=== PATIENT | male | born 1970 | race Hispanic/Latino ===

== ENCOUNTER → 2019-06-10 | Day surgery (SDC) | payer MEDICARE ==
[~2019-06-10] MED LIST: ATORVASTATIN CA20 MG PO; FENTANYL CITRATE/PF 100MCG/2 ML INJ ONE; FLECAINIDE ACE100 MG PO; FLOMAX0.4 MG PO; HUMALOG100 UNIT/3 SC; JANUMET XR 1001 EACH PO; JARDIANCE PO; LANTUS 3ML100 UNITS/ SC; LINZESS PO; MIDAZOLAM HCL 2 MG/2 ML VIAL ONE; OZEMPIC SC; PANTOPRAZOLE SO40 MG PO; PROPOFOL IV EMULSION 10 MG/ML 50 ML VIAL ONE; XARELTO20 MG PO
--- OUTSIDE RECORDS SUMMARY | 2019-06-10 06:21 | XMS REPORT | Continuity of Care Document ---
Author Author [facility] Organization [facility] Address Unknown Phone Unavailable Care Team Providers Care Anesthesia Technician Name Role Phone Therasis Information ADAPTIX Unavailable Unavailable Problems No Data Provided for This Section Medications Medication Details Route Status Patient Instructions Ordering Provider Order Date Source TAMSULOSIN HCL CAPSULE Active 07/13/2018 [facility] ATORVASTATIN CALCIUM Active 07/13/2018 [facility] PANTOPRAZOLE SODIUM Active 07/13/2018 [facility] RIVAROXABAN TABS Active 07/13/2018 [facility] METOPROLOL TARTRATE Active 07/13/2018 [facility] AMIODARONE HCL TABLET Active 07/13/2018 [facility] JARDIANCE TABLET Active 07/13/2018 [facility] HUMALOG SOLUTION Active 07/13/2018 [facility] LANTUS SOLUTION Active 07/13/2018 [facility] Allergies, Adverse Reactions, Alerts Substance Category Reaction Severity Reaction type Status Date Reported Comments Source Allergies Unknown propensity to adverse reactions [facility] Immunizations No Data Provided for This Section Results No Data Provided for This Section Pathology Reports No Data Provided for This Section Diagnostic Reports No Data Provided for This Section Consultation Notes No Data Provided for This Section Discharge Summaries No Data Provided for This Section History and Physicals No Data Provided for This Section Vital Signs Vital Sign Value Date Comments Source Diastolic (mm Hg) 82 09/02/2018 [facility] Systolic (mm Hg) 172 09/02/2018 [facility] Heart Rate 84 09/02/2018 [facility] Diastolic (mm Hg) 100 07/13/2018 [facility] Systolic (mm Hg) 152 07/13/2018 [facility] Heart Rate 68 07/13/2018 [facility] Encounters No Data Provided for This Section Procedures No Data Provided for This Section Assessment and Plan No Data Provided for This Section Plan of Care No Data Provided for This Section Social History No Data Provided for This Section Family History No Data Provided for This Section Advance Directives No Data Provided for This Section Functional Status No Data Provided for This Section
--- OUTSIDE RECORDS SUMMARY | 2019-06-10 06:21 | XMS REPORT ---
Author Author Admin, Riga Organization [facility] Address [address] [address] Phone Allergies, Adverse Reactions, Alerts Allergy Name Reaction Description Start Date Severity Status Provider Allergies Unknown Conditions or Problems Problem Name Problem Code Onset Date Status Entry Date Provider Comment Standard Description Annotate Problems Unknown Medication List Medication Instructions Start Date Stop Date Generic Name NDC Status Provider Patient Instruction AMIODARONE HCL TABLET AMIODARONE HCL TABS 03312612771 Active Bandar C Vandermeyden DDS Active ATORVASTATIN CALCIUM POWDER ATORVASTATIN CALCIUM 05112352771 Active Bandar C Vandermeyden DDS Active HUMALOG SOLUTION INSULIN LISPRO SOLN 80016169157 Active Bandar C Vandermeyden DDS Active JARDIANCE TABLET EMPAGLIFLOZIN TABS 53216013697 Active Bandar C Vandermeyden DDS Active LANTUS SOLUTION INSULIN GLARGINE SOLN 43636928651 Active Bandar C Vandermeyden DDS Active METOPROLOL TARTRATE POWDER METOPROLOL TARTRATE 25522656555 Active Bandar C Vandermeyden DDS Active PANTOPRAZOLE SODIUM POWDER PANTOPRAZOLE SODIUM 13446336906 Active Bandar C Vandermeyden DDS Active TAMSULOSIN HCL CAPSULE TAMSULOSIN HCL CAPS 22345777381 Active Bandar C Vandermeyden DDS Active XARELTO TABLET RIVAROXABAN TABS 92433001337 Active Bandar C Vandermeyden DDS Active Vital Signs Date Name Value Unit Range Description blood pressure, diastolic 82 mm[Hg] BP castaneda blood pressure, systolic 172 mm[Hg] BP sys pulse rate E&M 84 /min Heart rate blood pressure, diastolic 100 mm[Hg] BP castaneda blood pressure, systolic 152 mm[Hg] BP sys pulse rate E&M 68 /min Heart rate
--- OUTSIDE RECORDS SUMMARY | 2019-06-10 06:21 | XMS REPORT ---
Author Author [facility] Address Unknown Phone Unavailable Care Team Providers Care Patient Appointment Coordinator Name Role Phone Unavailable Unavailable Payers Payer Name Policy Type Policy Number Effective Date Expiration Date Problems This patient has no known problems. Allergies, Adverse Reactions, Alerts Allergy Name Allergy Type Status Severity Reaction(s) Onset Date Inactive Date Treating Clinician Comments No Known Allergies DA Active U 2015-04-15 00:00:00 Medications This patient has no known medications. Results Test Description Test Time Test Comments Text Results Atomic Results Result Comments - CT CHEST W/O CONTRAST 2019-04-13 12:07:00 Name: MAURICE TOBAR [facility] : 1970 Age/S: 48 / M [address] [facility] Unit #: [id number] Loc: [place] [address] Phys: Scarlet Britton MD Acct: [id number] Dis Date: Status: REG CLI PHONE #: [phone] Exam Date: 04/13/2019 1104 FAX #: [phone] Reason: CHEST WO EXAMS: CPT CODE: [id number] CT CHEST W/O CONTRAST 29585 HISTORY: Dyspnea on exertion. COMPARISON: None available. CT chest without contrast: Automated exposure control. Lungs are clear of infiltrates, effusion or congestion. No bronchiectasis, honeycombing or fibrosis or endobronchial lesions. No parenchymal mass or nodules. Normal caliber unopacified aorta and pulmonary arteries. Thyroid glands are unremarkable. No pathologic adenopathy. Esophageal wall is not thickened. Cardiac silhouette is mildly enlarged without pericardial effusion. Visualized upper abdomen demonstrating gallstones within noninflamed gallbladder. Subcutaneous tissues and the musculature are normal in appearance. No lytic or blastic lesions are noted within the bony skeleton. IMPRESSION: Lungs are clear of infiltrates, effusion or congestion. No bronchiectasis, honeycombing or fibrosis or endobronchial lesions. No parenchymal mass or nodules. No pathologic adenopathy. Gallstones. at 1207 Reported and signed by: Chidi Ibrahim M.D. CC: Scarlet Britton MD; Octavio Mcnulty DO Technologist:Martita MckeonRT(R),CT CTDI: DLP: Trnscb Date/Time: 04/13/2019 (8804) [email or web address] Orig Print D/T: S: 04/13/2019 (4294) PAGE 1 Signed Report
--- OUTSIDE RECORDS SUMMARY | 2019-06-10 06:21 | XMS REPORT | Clinical Summary ---
Author Author [facility] Organization [facility] Address Unknown Phone Unavailable Care Team Providers Care Production Ski Repairer Name Role Phone Octavio Mcnulty DO PCP Allergies No Known Allergies Medications End Date Status Medication Sig Dispensed Refills Start Date Active insulin GLARGINE (LANTUS) Inject 60 0 100 unit/mL injection Units under (vial) the skin 2 (two) times a day. Active insulin lispro (HumaLOG) Inject 20 0 100 unit/mL injection Units under the skin 3 (three) times a day before meals. Active empagliflozin (JARDIANCE) Take 25 mg by 0 25 mg tablet mouth daily. Active sitaGLIPtin-metformin Take 1 tablet 0 (JANUMET XR) 100-1,000 mg by mouth tablet, ER multiphase 24 daily. hr Active rivaroxaban (XARELTO) 20 Take 20 mg by 0 mg tablet mouth daily. Active atorvastatin (LIPITOR) 40 Take 40 mg by 0 MG tablet mouth daily. Active tamsulosin (FLOMAX) 0.4 Take 0.4 mg 0 mg capsule,extended by mouth release 24hr daily. Active pantoprazole (PROTONIX) Take 40 mg by 0 40 MG EC tablet mouth daily. Active linaCLOtide (LINZESS) 290 Take 290 mcg 0 mcg capsule by mouth daily before breakfast. Active semaglutide (OZEMPIC) Inject 0.25 0 0.25 mg or 0.5 mg(2 mg under the mg/1.5 mL) pen injector skin every 7 days. mondays Active traMADol (ULTRAM) 50 mg Take 50 mg by 0 tablet mouth every 6 (six) hours as needed for moderate pain. 05/09/2020 Active flecainide (TAMBOCOR) 50 Take 1 tablet 30 tablet 11 MG tablet (50 mg total) 9 by mouth daily. 05/09/2020 Active metoprolol tartrate Take 1 tablet 60 tablet 0 (LOPRESSOR) 25 mg tablet (25 mg total) 9 by mouth 2 (two) times a day as needed (tachycardia, check with Dr. De La Paz before taking). 03/13/2019 Discontinued (Med List Cleanup) aspirin 325 MG tablet Take 325 mg 0 by mouth once. 05/10/2019 Discontinued (Stop Taking at Discharge) amIODarone (PACERONE) 100 Take 100 mg 0 MG tablet by mouth daily. 03/13/2019 Discontinued (Med List Cleanup) prednisoLONE acetate Administer 1 0 (PRED FORTE) 1 % drop into the 7 ophthalmic suspension left eye 4 (four) times a day. 03/13/2019 Discontinued (Med List Cleanup) amoxicillin (AMOXIL) 250 Take 250 mg 0 MG capsule by mouth 4 7 (four) times a day. 03/13/2019 Discontinued (Med List Cleanup) acetaminophen-codeine Take 1 tablet 0 (TYLENOL WITH CODEINE #3) by mouth 7 300-30 mg per tablet every 4 (four) hours as needed. 03/13/2019 Discontinued (Med List Cleanup) LANTUS SOLOSTAR 100 Inject 55 0 unit/mL injection (pen) Units under 7 the skin 2 (two) times a day. 03/13/2019 Discontinued (Med List Cleanup) HUMALOG KWIKPEN 100 Inject 20 0 unit/mL injection pen Units under 7 the skin 3 (three) times a day with meals. 05/10/2019 Discontinued metoprolol tartrate Take 1 tablet 60 tablet 0 (LOPRESSOR) 25 mg tablet (25 mg total) 9 by mouth 2 (two) times a day. Active Problems Problem Noted Date SOB (shortness of breath) 05/09/2019 Chest pain 03/13/2019 Persistent atrial fibrillation 08/31/2017 Encounters Care Team Description Date Type Specialty Christine, MD Saulo Adamson Jr., Charles Matute MD SOB (shortness of breath) (Primary Dx); Atrial fibrillation with RVR (HCC) 05/08/2019 [facility] Critical Care Medicine - Encounter 05/10/2019 Derrick Santiago MD Berberian, Devan Joseph MD Chest pain, unspecified type (Primary Dx); Chest pain, rule out acute myocardial infarction 03/13/2019 Emergency General Internal Medicine - 03/14/2019 Milad Velasquez MD Secondary hypertension (Primary Dx); Shortness of breath 03/09/2019 Emergency Emergency Medicine - 03/10/2019 03/09/2019 Travel after 06/09/2018 Social History Date Tobacco Use Types Packs/Day Years Used Former Smoker Cigarettes 1.5 25 Smokeless Tobacco: Never Used Tobacco Cessation: Counseling Given: Yes Drinks/Week oz/Week Comments Alcohol Use quit 13 years ago, liqour/beer Not Currently Sex Assigned at Date Recorded Not on file Industry Job Start Date Occupation Not on file Not on file Not on file Travel End Travel History Travel Start No recent travel history available. Last Filed Vital Signs Reading Time Taken Comments Vital Sign 115/71 05/10/2019 6:45 PM CDT Blood Pressure 83 05/10/2019 6:45 PM CDT Pulse 36.7 C (98 F) 05/10/2019 4:00 PM CDT Temperature 21 05/10/2019 6:45 PM CDT Respiratory Rate 96% 05/10/2019 6:30 PM CDT Oxygen Saturation - - Inhaled Oxygen Concentration 96.6 kg (212 lb 15.4 oz) 05/09/2019 6:10 PM CDT Weight 175.3 cm (5' 9") 05/09/2019 6:10 PM CDT Height 31.45 05/09/2019 6:10 PM CDT Body Mass Index Plan of Treatment Health Maintenance Due Date Last Done Comments INFLUENZA VACCINE 04/22/2019 Procedures Comments Procedure Name Priority Date/Time Associated Diagnosis POC GLUCOSE Routine 05/10/2019 4:52 PM CDT ECHOCARDIOGRAM 2D Routine 05/10/2019 COMPLETE W MMODE SPECTRAL 12:31 PM CDT COLOR DOPPLER ([id number]) POC GLUCOSE Routine 05/10/2019 11:30 AM CDT POC GLUCOSE Routine 05/10/2019 7:00 AM CDT POC GLUCOSE Routine 05/09/2019 8:18 PM CDT POC GLUCOSE Routine 05/09/2019 4:53 PM CDT TROPONIN Timed 05/09/2019 9:01 AM CDT THYROID STIMULATING Routine 05/09/2019 HORMONE 5:25 AM CDT XR CHEST 1 VW STAT 05/09/2019 12:24 AM CDT ECG 12-LEAD STAT 05/08/2019 11:30 PM CDT ECG ED PRELIMINARY Routine 05/08/2019 INTERPRETATION 11:18 PM CDT MA CRITICAL CARE, E/M Routine 05/08/2019 30-74 MINUTES 11:18 PM CDT PARTIAL THROMBOPLASTIN STAT 05/08/2019 TIME (PTT) 11:05 PM CDT PROTHROMBIN TIME WITH INR STAT 05/08/2019 11:05 PM CDT ESTIMATED GFR STAT 05/08/2019 11:05 PM CDT B NATRIURETIC PEPTIDE STAT 05/08/2019 11:05 PM CDT TROPONIN STAT 05/08/2019 11:05 PM CDT COMPREHENSIVE METABOLIC STAT 05/08/2019 PANEL 11:05 PM CDT HC COMPLETE BLD COUNT STAT 05/08/2019 W/AUTO DIFF 11:05 PM CDT POC GLUCOSE Routine 03/14/2019 4:09 PM CDT POC GLUCOSE Routine 03/14/2019 10:57 AM CDT POC GLUCOSE Routine 03/14/2019 6:34 AM CDT POC GLUCOSE Routine 03/13/2019 8:23 PM CDT TROPONIN Timed 03/13/2019 7:25 PM CDT US GALLBLADDER STAT 03/13/2019 7:00 PM CDT TROPONIN Timed 03/13/2019 3:09 PM CDT XR CHEST 1 VW PORTABLE STAT 03/13/2019 1:33 PM CDT LIPASE LEVEL STAT 03/13/2019 1:15 PM CDT ESTIMATED GFR STAT 03/13/2019 1:15 PM CDT B NATRIURETIC PEPTIDE STAT 03/13/2019 1:15 PM CDT TROPONIN STAT 03/13/2019 1:15 PM CDT COMPREHENSIVE METABOLIC STAT 03/13/2019 PANEL 1:15 PM CDT HC COMPLETE BLD COUNT STAT 03/13/2019 W/AUTO DIFF 1:15 PM CDT ECG ED PRELIMINARY Routine 03/13/2019 INTERPRETATION 12:49 PM CDT ECG 12-LEAD STAT 03/13/2019 12:45 PM CDT POC GLUCOSE Routine 03/13/2019 12:40 PM CDT ESTIMATED GFR STAT 03/09/2019 10:10 PM CDT B NATRIURETIC PEPTIDE STAT 03/09/2019 10:10 PM CDT TROPONIN STAT 03/09/2019 10:10 PM CDT COMPREHENSIVE METABOLIC STAT 03/09/2019 PANEL 10:10 PM CDT HC COMPLETE BLD COUNT STAT 03/09/2019 W/AUTO DIFF 10:10 PM CDT XR CHEST 1 VW PORTABLE STAT 03/09/2019 10:04 PM CDT ECG ED PRELIMINARY Routine 03/09/2019 INTERPRETATION 9:32 PM CDT ECG 12-LEAD STAT 03/09/2019 9:13 PM CDT after 06/09/2018 Results * POC glucose (05/10/2019 4:52 PM CDT) Only the most recent of 10 results within the time period is included. POC glucose 122 (H) 65 - 100 mg/dL ISSUE Comment: [facility]H'S WITNESS Meter ID: [id number] [place] [employer] Manager: Rosalina Abbott [facility] Specimen Performing Organization Address City/State/Zipcode Phone Number [facility] DEPARTMENT OF [address] [facility] [place] [address] PATHOLOGY AND GENOMIC MEDICINE ISSUE [facility] [place] [address] [facility] [place] [phone] [place] [address] * Echocardiogram complete w contrast and 3D if needed (05/10/2019 12:31 PM CDT) Pathologist [facility] Ao Root 2.95 cm [facility] Diameter AoV Area, Vmax 2.68 cm2 [facility] AoV Area, VTI 2.74 cm2 [facility] AoV Mean PG 2.83 mmHg [facility] AoV Peak PG 5.30 mmHg [facility] AoV Vmax 1.16 m/s [facility] AoV VTI 0.25 m [facility] BSA Buck 2.23 m2 [facility] BSA 2.19 m2 [facility] IVS,d 0.82 cm [facility] IVS/LVPW,2D 0.87 [facility] Left Atrium 3.87 cm [facility] Dimension Anterior LV,d 5.97 cm [facility] LV EF,2D 63.63 % [facility] LV,s 4.26 cm [facility] LVOT area 3.36 cm2 [facility] LVOT Diam,S 2.07 cm [facility] LVOT Vmax 0.93 m/s [facility] LVOT VTI 0.19 m [facility] LVPWD,d 0.94 cm [facility] PV Pk Grad 5.25 mmHg [facility] PV VMAX 1.15 m/s [facility] TR Vpeak 2.04 mm/s [facility] MV E A ratio 1.37 [facility] TR pk grad 16.63 mmHg [facility] AoV area i VTI 1.28 cm2/m2 [facility] BSA [place] BMI 32.19 kg/m2 [facility] E wave 151.55 msec [facility] decelartion time IVRT 79.92 msec [facility] MV Peak A Haim 0.58 m/s [facility] MV valve area p 4.91 cm2 [facility] 1/2 method MV Peak E [place]aim 0.81 m/s [facility] MV stenosis 44.78 ms [facility] pressure 1/2 time AV LVOT peak 3.38 mmHg [facility] gradient Ascending aorta 3.17 cm [facility] Ao Root 2.95 cm [facility] Diameter LV SYS VOL 81.24 ml [facility] LV WALKER VOL 177.78 ml [facility] LV SI Teich 2D 45.05 ml/m2 [facility] LV SV Teich 2D 96.54 ml [facility] LV Vol s Teich 81.24 ml [facility] PSAX LVOT SI 31.45 ml/m2 [facility] BSA [place] 2.23 m2 [facility] AoV Vmn 0.79 [facility] IVS s 2D 1.38 [facility] LV FS Teich 2D 28.62 [facility] MV AE ratio 0.73 [facility] LV FS Cube 2D 28.62 [facility] LVOT Vmn 0.65 [facility] Pt Size 175.26 [facility] Pt Wt 98.88 [facility] Aov area Vmn 2.66 cm2 [facility] LVOT mean grad 1.88 mmHg [facility] MAX Pred HR 171.26 [facility] 85 of MPHR 145.57 [facility] AoV area I VMN 1.24 cm2/m2 [facility] bsa Calc MPHR 171.26 bpm [facility] IVS pct thck 68.46 % [facility] PLAX LV SI Cube 2D 63.11 ml/m2 [facility] LV SV Cube 2D 135.22 ml [facility] LV vol d cube 212.51 ml [facility] 2D LV vol s cube 77.29 ml [facility] 2D LVPW pct thck 45.75 % [facility] PLAX LVPW s PLAX 1.37 cm [facility] MV Decel slope 5.35 m/s2 [facility] Pred Exer Dur 10.44 [facility] R1 Pred METS R1 10.69 [facility] LA Vol MOD A4C 60.90 ml [facility] Velocity Ratio 0.80 m/s [facility] (V1/V2) EF 54.30 % [facility] E/A ratio 1.40 [facility] Specimen Narrative Performed At [facility] Left Ventricular ejection fraction is 60 - 65% Normal left ventricular wall thickness and regional wall motion No significant valvular abnormalities. Performing Organization Address City/State/Zipcode Phone Number [facility] [address] [place] [address] * Troponin (05/09/2019 9:01 AM CDT) Only the most recent of 6 results within the time period is included. Troponin 0.037 0.000 - 0.040 ng/mL ISSUE Comment: [facility] changed methodology effective: HOSPITAL 01/26/2019 at 10:00 am The new method has a 99th percentile cutoff of 0.040 ng/mL Specimen Plasma specimen Performing Organization Address City/[facility] Phone Number [facility] [place] [address] PATHOLOGY AND GENOMIC MEDICINE [address] * Thyroid stimulating hormone (05/09/2019 5:25 AM CDT) Pathologist [facility] TSH 1.79 0.27 - 4.20 uIU/mL [facility] Specimen Plasma specimen Performing Organization Address [facility] Phone Number [facility] [place] [address] PATHOLOGY AND GENOMIC MEDICINE [address] * XR Chest 1 Vw (05/09/2019 12:24 AM CDT) Specimen Narrative Performed At EXAMINATION: XR CHEST 1 VW [facility] CLINICAL HISTORY: eval for pna COMPARISON:03/13/2019. IMPRESSION: The lungs are clear. No pleural effusion or pneumothorax. The cardiomediastinal silhouette is normal. No acute osseous abnormalities. [facility]-[id number] Procedure Note Interface, Radiology Results Incoming - 05/09/2019 12:35 AM CDT EXAMINATION: XR CHEST 1 VW CLINICAL HISTORY: eval for pna COMPARISON: 03/13/2019. IMPRESSION: The lungs are clear. No pleural effusion or pneumothorax. The cardiomediastinal silhouette is normal. No acute osseous abnormalities. [facility]-[id number] Performing Organization Address City/[facility]/Zipcode Phone Number [facility] [address] [place] [address] * ECG 12 lead (05/08/2019 11:30 PM CDT) Only the most recent of 3 results within the time period is included. Ventricular 124 [facility] rate Atrial rate 117 [facility] QRSD interval 100 [facility] QT interval 292 [facility] QTC interval 419 [facility] QRS axis 1 57 [facility] T wave axis 28 [facility] EKG impression Atrial fibrillation with rapid [facility] ventricular response-Abnormal ECG-In automated comparison with ECG of 13-MAR-2019 12:45,-Atrial fibrillation has replaced Sinus rhythm-Vent. rate has increased BY41 BPM-Incomplete right bundle branch block is no longer present- Specimen Narrative Performed At Performing Organization Address City/State/Zipcode Phone Number [facility] MUSE [address] [place] [address] * ECG ED Preliminary Interpretation - Not an Order (05/08/2019 11:18 PM CDT) Only the most recent of 3 results within the time period is included. Narrative Performed At Dillon King Jr., MD 05/09/2019 12:12 PM ECG ED Preliminary Interpretation - Not an Order Performed by: Dillon King Jr., MD Authorized by: Dillon King Jr., MD ECG reviewed by ED Physician in the absence of a sewing supervisor: yes Interpretation: Interpretation: normal Rate: ECG rate:124 ECG rate assessment: tachycardic Rhythm: Rhythm: atrial fibrillation Ectopy: Ectopy: none QRS: QRS axis:Normal QRS intervals:Normal Conduction: Conduction: normal ST segments: ST segments:Normal T waves: T waves: normal * CRITICAL CARE (05/08/2019 11:18 PM CDT) Narrative Performed At Dillon King Jr., MD 05/09/2019 12:12 PM Critical Care Performed by: Dillon King Jr., MD Authorized by: Dillon King Jr., MD Critical care provider statement: Critical care time (minutes):35 Critical care time was exclusive of:Separately billable procedures and treating other patients Critical care was necessary to treat or prevent imminent or life-threatening deterioration of the following conditions:Cardiac failure (atrial fibrillation with rvr) Critical care was time spent personally by me on the following activities:Development of treatment plan with patient or surrogate, discussions with primary provider, evaluation of patient's response to treatment, examination of patient, obtaining history from patient or surrogate, re-evaluation of patient's condition, pulse oximetry, ordering and review of radiographic studies, ordering and review of laboratory studies, ordering and performing treatments and interventions, discussions with consultants, review of old charts and interpretation of cardiac output measurements Connor 'yes' if you are taking over critical care for this patient from another provider.: no * Estimated GFR (05/08/2019 11:05 PM CDT) Only the most recent of 3 results within the time period is included. [facility] Estimated GFR 64 mL/min/1.73 m2 ISSUE Comment: [facility] G1 >=90 Normal or high G2 60-89Mildly decreased [id number] Mildly to moderately decreased [id number] Moderately to severely decreased G4 15-29Severely decreased G5 <15Kidney failure The eGFR was calculated using the Chronic Kidney Disease Epidemiology Collaboration (CKD-EPI) equation. Interpretation is based on recommendations of the National Kidney Foundation-Kidney Disease Outcomes Quality Initiative (NKF-KDOQI) published in 2014. Specimen Plasma specimen Performing Organization Address City/[facility]/Zipcode Phone Number [facility] [address] AND [facility] [place] [address] HOSPITAL * Partial thromboplastin time, activated (05/08/2019 11:05 PM CDT) [facility] PTT 29.9 23.0 - 36.0 sec ISSUE Comment: [facility]'S WIT[facility] PTT therapeutic range for [place] unfractionated heparin is HOSPITAL 61.0-112.0 seconds which corresponds to Anti-Xa 0.3-0.7 U/ml. Note:Change in Panic Value The PTT Panic Value is changing from 110 sec. to 100 sec. due to new instrumentation and reagents. Correlation studies have been performed to validate this result. Specimen Blood Performing Organization Address City/[facility]/Zipcode Phone Number [facility] DEPARTMENT OF [address] [place] [phone] PATHOLOGY AND [facility] [place] [address] HOSPITAL * Prothrombin time with INR (05/08/2019 11:05 PM CDT) Prothrombin 13.3 11.5 - 14.5 sec [facility] INR 1.04 ISSUE Comment: J[facility]OVAH'S WITNESS For patients on anticoagulant [place] therapy, reference ranges HOSPITAL below: Indication: INR Value Treatment of Venous Thrombosis, 2.0-3.0 pulmonary emboli, or prophylaxis of a venous thrombosis, or systemic emboli. High dose, high risk patients 3.0-4.5 with mechanical valves. NOTE:INR values over 3.0 are sometimes associated with gastrointestinal hemorrhage, especially values over 4.0. Specimen Blood Performing Organization Address City/State/Zipcode Phone Number [facility] DEPARTMENT OF [address] [place] [address] PATHOLOGY AND GENOMIC MEDICINE [facility] [address] * CBC with platelet and differential (05/08/2019 11:05 PM CDT) Only the most recent of 3 results within the time period is included. WBC 9.2 4.2 - 11.0 k/uL [facility] RBC 4.44 4.04 - 5.86 m/uL [facility] HGB 13.2 13.0 - 17.3 g/dL [facility] HCT 41.3 34.0 - 45.0 % [facility] MCV 93.0 80.0 - 98.[address] [facility] MCH 29.7 27.0 - 34.[address] [facility] MCHC 32.0 31.5 - 36.5 g/dL [facility] RDW - SD 42.4 37.0 - 51.[address] [facility] MPV 12.6 (H) 7.4 - 10.[address] [facility] Platelet count 136 (L) 150 - 400 k/uL [facility] Nucleated RBC 0.00 /[address] [facility] Neutrophils 56.8 36.0 - 66.0 % [facility] Lymphocytes 30.3 24.0 - 44.0 % [facility] Monocytes 10.5 (H) 0.0 - 6.0 % [facility] Eosinophils 1.7 0.0 - 6.0 % [facility] Basophils 0.4 0.0 - 1.2 % [facility] Immature 0.3 0.0 - 1.0 % ISSUE granulocytes [facility] Specimen Blood Performing Organization Address City/[facility] Centercode [place] [address] PATHOLOGY AND GENOMIC MEDICINE [address] * B natriuretic peptide (05/08/2019 11:05 PM CDT) Only the most recent of 3 results within the time period is included. [facility] BNP 5 0 - 100 pg/mL [facility] Specimen Blood Performing Organization Address City/[facility] Cent[facility]ode [place] [address] PATHOLOGY AND GENOMIC MEDICINE [address] * Comprehensive metabolic panel (05/08/2019 11:05 PM CDT) Only the most recent of 3 results within the time period is included. [facility] Sodium 138 135 - 150 mEq/L [facility] Potassium 4.0 3.5 - 5.0 mEq/L [facility] Chloride 99 98 - 112 mEq/L [facility] CO2 27 24 - 31 mmol/L [facility] Anion gap 12@ANIO 7 - 15 mEq/L [facility] BUN 21 (H) 7 - 18 mg/dL [facility] Creatinine 1.30 (H) 0.70 - 1.20 mg/dL [facility] Glucose 232 (H) 65 - 100 mg/dL [facility] Calcium 9.1 8.3 - 10.2 mg/dL [facility] Protein 7.5 6.3 - 8.3 g/dL [facility] Albumin 3.6 3.5 - 5.0 g/dL [facility] A/G ratio 0.9 0.7 - 3.[address] [facility] Alkaline 88 0 - 129 U/L ISSUE phosphatase [facility] AST 17 10 - 50 U/L [facility] ALT 31 5 - 50 U/L [facility] Total bilirubin 0.3 0.2 - 1.2 mg/dL [facility] Specimen Plasma specimen Performing Organization Address City/[facility]/Zipcode Phone Number [facility] DEPARTMENT OF [address] [place] [address] PATHOLOGY AND GENOMIC MEDICINE [facility] [address] * US Gallbladder (03/13/2019 7:00 PM CDT) Specimen Narrative Performed At [facility] CLINICAL INDICATION:Cholelithiasis COMPARISON:None. FINDINGS: GALLBLADDER:The liver is homogeneously hyperechogenic reflecting moderate hepatic steatosis. An area of focal fat sparing is present about the gallbladder fossa CBD:CBD is normal in caliberand measures 3 mm. MAIN PORTAL VEIN:Doppler evaluation of the portal vein demonstrates normal hepatopedal flow. OTHER COMMENTS:No ascites. IMPRESSION: Hepatic steatosis. No cholelithiasis or acute biliary disease. *[facility]-[id number] Procedure Note Hm Interface, Radiology Results Incoming - 03/13/2019 7:11 PM CDT US GALLBLADDER CLINICAL INDICATION: Cholelithiasis COMPARISON: None. FINDINGS: GALLBLADDER: The liver is homogeneously hyperechogenic reflecting moderate hepatic steatosis. An area of focal fat sparing is present about the gallbladder fossa CBD: CBD is normal in caliber and measures 3 mm. MAIN PORTAL VEIN: Doppler evaluation of the portal vein demonstrates normal hepatopedal flow. OTHER COMMENTS: No ascites. IMPRESSION: Hepatic steatosis. No cholelithiasis or acute biliary disease. *[facility]-[id number] Performing Organization Address City/State/Zipcode Phone Number [facility] [address] [facility] [place] [address] * XR Chest 1 Vw Portable (03/13/2019 1:33 PM CDT) Only the most recent of 2 results within the time period is included. Specimen Narrative Performed At EXAMINATION:XR CHEST 1 VW PORTABLE [facility] CLINICAL HISTORY:SOB COMPARISON:Single view chest from 03/09/2019 IMPRESSION: An AP radiograph of the chest was submitted for interpretation. Low lung volumes. Bilateral lower lobe atelectasis. No focal consolidation or pleural effusion. No pneumothorax or midline shift. The mediastinal contours and cardiac silhouette are unremarkable. The bones are unremarkable. [facility]-[id number] Procedure Note Hm Interface, Radiology Results Incoming - 03/13/2019 1:38 PM CDT EXAMINATION: XR CHEST 1 VW PORTABLE CLINICAL HISTORY: SOB COMPARISON: Single view chest from 03/09/2019 IMPRESSION: An AP radiograph of the chest was submitted for interpretation. Low lung volumes. Bilateral lower lobe atelectasis. No focal consolidation or pleural effusion. No pneumothorax or midline shift. The mediastinal contours and cardiac silhouette are unremarkable. The bones are unremarkable. [facility]-[id number] Performing Organization Address City/State/Zipcode Phone Number [facility] [address] [place] [address] * Lipase level (03/13/2019 1:15 PM CDT) Lipase 20 13 - 60 U/L [facility] Specimen Plasma specimen Performing Organization Address City/State/Zipcode Phone Number [facility] DEPARTMENT OF [address] [facility] [place] [address] PATHOLOGY AND GENOMIC MEDICINE [facility] [address] [place] [id number] HOSPITAL after 06/09/2018 Insurance Type Payer Benefit Subscriber ID Effective Phone Address Plan / Dates Group O [employer] C[employer]NA xxxxxxxx [id number] [facility] Advance Directives For more information, please contact: [phone] Patient Inspector [employer]ugs Explanation Type Date Recorded Advance Directives, 07/18/2017 12:19 PM 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
[2019-06-10 09:03] LABS: BASOPHILS % 0.4 % (0.0-1.0); EOSINOPHILS # (AUTO) 0.2 (0.0-0.4); EOSINOPHILS % 2.2 % (0.0-6.0); HEMATOCRIT 44.4 % (38.2-49.6); LYMPHOCYTES # (AUTO) 1.5 (1.0-3.2); LYMPHOCYTES % 19.1 % (18.0-39.1); MEAN CORPUSCULAR HEMOGLOBIN 29.8 pg (28-32); MEAN CORPUSCULAR HGB CONC 33.8 g/dL (31-35); MEAN CORPUSCULAR VOLUME 88.3 fL (81-99); MONOCYTES # (AUTO) 0.7 (0.2-0.8); MONOCYTES % 8.3 % (4.4-11.3); NEUTROPHILS # (AUTO) 5.5 (2.1-6.9); NEUTROPHILS % 69.7 % (38.7-80.0); PLATELET COUNT 130 x10e3/uL (140-360); RED BLOOD COUNT 5.03 x10e6/uL (4.3-5.7); RED CELL DISTRIBUTION WIDTH 12.7 % (11.7-14.4)
[2019-06-10 10:35] VITALS: BP 139/76
== END | disposition home or self-care (01) ==
LOC: OR 06:18
PROVIDERS: ATTEND Internal Medicine Gastroenterology
DX: R10.32 Left lower quadrant pain (principal); D12.2 Benign neoplasm of ascending colon; D12.3 Benign neoplasm of transverse colon; K29.70 Gastritis, unspecified, without bleeding; K44.9 Diaphragmatic hernia without obstruction or gangrene; K21.0 Gastro-esophageal reflux disease with esophagitis; K57.30 Diverticulosis of large intestine without perforation or abscess without bleeding; K64.8 Other hemorrhoids; Z71.3 Dietary counseling and surveillance; E11.9 Type 2 diabetes mellitus without complications; E66.9 Obesity, unspecified; G47.33 Obstructive sleep apnea (adult) (pediatric); I48.91 Unspecified atrial fibrillation; K76.0 Fatty (change of) liver, not elsewhere classified; Z79.84 Long term (current) use of oral hypoglycemic drugs; Z79.02 Long term (current) use of antithrombotics/antiplatelets; Z79.4 Long term (current) use of insulin; Z68.32 Body mass index [BMI] 32.0-32.9, adult; Z87.891 Personal history of nicotine dependence
CPT/HCPCS: 36415; 43239; 45385; 82948; 85025; 88305; 88312; 93005; J2250; J2704; J3010; 45378